=== PATIENT | female | born 2005 | race Caucasian/White ===

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

== ENCOUNTER 2025-03-22 22:26 | Emergency (ER) | payer OTHER, SELFPAY ==
[2025-03-22 22:28] VITALS: BP 151/100; PULSE 78; TEMP 37.4; O2SAT 98; BMI 39.5
[2025-03-22 22:58] LABS: SARS-CoV-2 Ag NEGATIVE (NEGATIVE)
--- NOTE | 2025-03-22 23:02 | XR_ITS ---
[facility] [place] [id number] Patient Name: OLEGARIO COLLINS MRN: [id number] date: 2005 Sex: F Assigned Patient Location: ER Current Patient Location: ED.MAIN Accession/Order Number: [id number] Exam Date: 03/22/2025 23:16 Report Date: 03/22/2025 23:44 At the request of: RACHANA RUIZ MD Procedure: XR chest 2V PA AND LATERAL CHEST: CLINICAL HISTORY: cough COMPARISON: None FINDINGS: Unremarkable cardiomediastinal. Lungs clear. No effusion or pneumothorax. XR/XR chest 2V IMPRESSION: NO ACUTE CARDIOPULMONARY ABNORMALITY. Impression dictated by: Viral Zhang M.D. 03/22/2025 11:44 PM Dictation Location: [place] [address] Electronically authenticated by: [id number] Y Date: 03/22/2025 23:44
--- NOTE | 2025-03-22 23:03 | ED.URI1 ---
HPI - URI/Sore Throat General Chief Complaint: Upper Respiratory Infection Stated Complaint: COUGHING UP BLOOD/ HURTS TO SWALLOW Time Seen by Provider: 03/22/25 22:33 Source: patient Limitations: no limitations History of Present Illness HPI Narrative: ill one week with cough. post tussive emesis . few times coughed up blood tinged phlegm and other times green phlegm. Low grade fever. No chest pain. Hurts to swallow. Not short of breath Related Data Home Medications ?Medication ?Instructions ?Recorded ?Confirmed No Known Home Medications 03/22/25 03/22/25 Allergies Allergy/AdvReac Type Severity Reaction Status Date / Time No Known Drug Allergies Allergy Verified 03/22/25 22:34 Review of Systems ROS Status of ROS 10 or more systems reviewed and unremarkable except as noted in history and below PFSH PFS Social History Little interest or pleasure in doing things: not at all Feeling down, depressed, or hopeless: not at all Exam Constitutional Vital Signs, click to edit/add: Last Vital Signs Temp 99.3 F 03/22/25 22:28 Pulse 78 03/22/25 22:28 Resp 18 03/22/25 22:28 BP 151/100 H 03/22/25 22:28 Pulse Ox 98 03/22/25 22:28 O2 Del Method Room Air 03/22/25 22:28 Common normals: no apparent distress, average body habitus, oriented x3, no limitations, healthy appearing, alert and well nourished [facility] Common normals: normocephalic and head/scalp atraumatic Other: erythema pharynx. no exudate or swelling Eye Common normals: EOMs intact bilaterally and conjunctivae normal Respiratory Common normals: normal respiratory effort, no retractions, no use of accessory muscles and clear to auscultation bilaterally Cardio Common normals: regular rate, regular rhythm, S1 normal heart sound and S2 normal heart sound Extremity Common normals: normal to inspection and full ROM Neuro Common normals: oriented x3, CN's II-XII intact bilaterally, moves all extremities and no focal motor deficits Psych Appearance: grossly normal Course Vital Signs Vital signs: Vital Signs Temperature 99.3 F 03/22/25 22:28 Pulse Rate 78 03/22/25 22:28 Respiratory Rate 18 03/22/25 22:28 Blood Pressure 151/100 H 03/22/25 22:28 Pulse Oximetry 98 03/22/25 22:28 Oxygen Delivery Method Room Air 03/22/25 22:28 Temperature 99.3 F 03/22/25 22:28 Pulse Rate 78 03/22/25 22:28 Respiratory Rate 18 03/22/25 22:28 Blood Pressure 151/100 H 03/22/25 22:28 Pulse Oximetry 98 03/22/25 22:28 Oxygen Delivery Method Room Air 03/22/25 22:28 MDM - URI/Sore Throat MDM Narrative Medical decision making narrative: ill for one week with productive cough, low grade fever. Post tussive emesis and occ blood tingled phlegm. cxray is clear. COVID 19 , influenza and strep neg. CBC, BMP WNL. patient informed of working diagnosis of acute bronchitis and discharged home with [facility] Lab Data Labs: Lab Results 03/22/25 03/22/25 Range/Units 22:36 23:13 WBC 8.8 (4.0-11.0) 10^3/uL RBC 4.49 (4.20-5.40) 10^6/uL Hgb 12.4 (12.0-16.0) g/dL Hct 38.1 (36.0-48.0) % MCV 84.9 (81.0-99.0) fL MCH 27.6 (26.7-34.0) pg MCHC 32.5 (29.9-35.2) g/dL RDW 12.8 (11.0-15.0) % Plt Count 430 (150-450) 10^3/uL MPV 9.0 L (9.5-13.5) fL Neut % (Auto) 61.6 (43.0-75.0) % Lymph % (Auto) 28.7 (20.5-60.0) % [place] % (Auto) 7.2 (1.7-12.0) % Eos % (Auto) 1.8 (0.9-7.0) % Baso % (Auto) 0.5 (0.2-2.0) % Neut # (Auto) 5.4 (1.4-6.5) 10^3/uL Lymph # (Auto) 2.5 (1.2-3.8) 10^3/uL [place] # (Auto) 0.6 (0.3-0.8) 10^3/uL Eos # (Auto) 0.2 (0.0-0.7) 10^3/uL Baso # (Auto) 0.0 (0.0-0.1) 10^3/uL Abs Immat Gran (auto) 0.02 (0.00-0.03) 10^3/uL Imm/Tot Granulo (auto) 0.2 (0.0-0.5) % Sodium 140 (136-145) mmol/L Potassium 3.8 (3.5-5.1) mmol/L Chloride 105 (98-107) mmol/L Carbon Dioxide 28.1 (21.0-32.0) mmol/L Anion Gap 10.7 BUN 10.0 (7.0-18.0) mg/dL Creatinine 0.79 (0.55-1.02) mg/dL Est GFR ( Amer) >60 (>=60 mL/min/1.73m^2) Est GFR (Non-Af Amer) >60 (>=60 mL/min/1.73m^2) BUN/Creatinine Ratio 12.7 Glucose 97 (74-106) mg/dL Calcium 9.4 (8.5-10.1) mg/dL Influenza Type A Ag Negative Influenza Type B Ag Negative SARS-CoV-2 Ag (CV2AG) Negative (NEGATIVE) Streptococcus Screen Negative Discharge Plan Discharge Chief Complaint: Upper Respiratory Infection Clinical Impression: Bronchitis Patient Disposition: Home, Self-Care Prescriptions / Home Meds: No Action No Known Home Medications Print Language: Maltese Instructions: Acute Bronchitis (ED) Additional Instructions: follow up with your doctor later this week for recheck Referrals: Physician,Non-Staff, MD [Primary Care Provider] - 1 week
[2025-03-22 23:20] LABS: Hematocrit 38.1 % (36.0-48.0); Hemoglobin 12.4 g/dL (12.0-16.0); Immature Granulocytes Abs Auto 0.02 10^3/uL (0.00-0.03); Immature Granulocytes Pct Auto 0.2 % (0.0-0.5); Lymphocytes Absolute Auto 2.5 10^3/uL (1.2-3.8); Mean Corpuscular HGB Conc 32.5 g/dL (29.9-35.2); Mean Corpuscular Hemoglobin 27.6 pg (26.7-34.0); Mean Corpuscular Volume 84.9 fL (81.0-99.0); Platelet Count 430 10^3/uL (150-450); Red Blood Count 4.49 10^6/uL (4.20-5.40); White Blood Count 8.8 10^3/uL (4.0-11.0)
--- OUTSIDE RECORDS SUMMARY | 2025-03-22 23:23 | XMS_ITS | CCD ---
Author Organization [facility] Care Team Providers Care Plaster Mixer Name Role Phone Albert Link Unavailable AICHHOLZ, RETAIL SUPPORT SPECIALIST ENA Attending Unavailable AICHHOLZ, RETAIL SUPPORT SPECIALIST ENA Consulting Unavailable AICHHOLZ, RETAIL SUPPORT SPECIALIST ENA Primary Care Unavailable AICHHOLZ, RETAIL SUPPORT SPECIALIST ENA Admitting Unavailable AICHHOLZ, ENA Attending Unavailable AICHHOLZ, ENA Attending Unavailable MAI, ROCIO Attending Unavailable AICHHOLZ, ENA J Primary Care Unavailable NONE, XXXX Primary Care Physician Unavailab kathleen DANIEL, SUSAN EDWARDS Attending Unavaila ble FREDY, SUSAN EDWARDS Admitting Unavaila ble FREDY, SUSAN EDWARDS Attending Unavaila ble FREDY, SUSAN EDWARDS Admitting Unavaila ble NO FAMILY, PHYSICIAN Primary Care Provider Unava ilable [facility] Omar ORO Attending Provider Duarte Palacios Jr Attending Unavailable Duarte Palacios Jr Admitting Unavailable NO FAMILY, PHYSICIAN Primary Care Unavailable NO FAMILY, PHYSICIAN [facility] Attending [facility] Admitting Unavailable NO FAMILY, PHYSICIAN Primary Care Provider Unava dcable [facility] Omar ORO Attending Provider Aylin Silva APRN Attending Provider Medications Current Medications MedicationDrug Class(es)DatesSig (Normalized)Sig (Original)FLUoxetine 20 mg oral capsule (1 source)Serotonin Reuptake InhibitorStart: 72-93-3729kply 1 mg by mouth once dailyFluoxetine 20 mg capsule Active MG PO Daily March 21, 2025 12:00am Complies with drug therapypropranolol hydrochloride 10 mg oral tablet (1 source)beta-Adrenergic BlockerStart: 99-20-4743Zzmbiizelbj 10 mg tablet Active 10 MG PO March 21, 2025 12:00am Complies with drug therapy Completed/Discontinued Medications MedicationDrug Class(es)DatesSig (Normalized)Sig (Original)OLANZapine 2.5 mg oral tablet (1 source)Atypical AntipsychoticStart: 03-21-2025 End: 75-42-9911Gpyajkahsl 2.5 mg tablet Discontinued 2.5 MG PO March 21, 2025 12:00am March 21, 2025 9:50am Problems Active Problems Problem ClassificationProblemDateDocumented DateEpisodic/ChronicCrushing injury or internal injury (1 source)Crushing injury of right wrist, initial encounter; Translations: [Crushing injury of right wrist, initial encounter]Onset: 83-67-3969Gccrwpmw Menstrual disorders (4 sources)Excessive and frequent menstruation with irregular cycle; Translations: [EXCESS AND FREQ MEN W/IRREG CYCLE]Onset: 56-07-7728RlidvdwXomju non-traumatic joint disorders (1 source)Pain in wristOnset: 40-40-0000FtnnijztSjkgh nutritional; endocrine; and metabolic disorders (1 source)Obesity, unspecified; Translations: [OBESITY UNSPECIFIED]Onset: 62-12-4423AgwtgawIpnzrkp and strains (1 source)Unspecified sprain of right wrist, initial encounter; Translations: [Unspecified sprain of right wrist, initial encounter]Onset: 00-63-5398Vjmlppjq Unclassified (1 source)Wrist InjuryOnset: 06-11-2024 Past or Other Problems Problem ClassificationProblemDateDocumented DateEpisodic/ChronicJoint disorders and dislocations; trauma-related (1 source)Unspecified tear of unspecified meniscus, current injury, right knee, initial encounterOnset: 09-13-2021 Resolved: 62-53-2906NidsbzxdZamju injuries and conditions due to external causes (1 source)Unspecified injury of right lower leg, initial encounterOnset: 09-13-2021 Resolved: 73-57-4273TvdivdjkLuksv non-traumatic joint disorders (1 source)Effusion, right kneeOnset: 09-13-2021 Resolved: 21-35-1857XwcgwygkSjveumxljde injury; contusion (1 source)Contusion of right knee, subsequent encounterOnset: 10-02-2021 Resolved: 03-23-3885Zufgjekj Results Test NameValueInterpretationReference RangeFacilityInfluenza virus A and B and SARS-CoV-2 (COVID-19) RNA panel - Respiratory system specOrdered By: Aylin Silva on 14-40-3461Akfgofxiz virus A and B RNA and SARS-CoV-2 (COVID-19) N gene panel WINDY+probe (Resp)NegativeUniversity Hospitals Portage Medical CenterLaboratory - Microbiology and Antimicrobial susceptibilityOrdered By: Aylin Silva on 27-01-5906LDUW-CoV-2 (COVID-19) RNA WINDY+probe Ql (Unsp spec)NegativeUniversity Hospitals Portage Medical CenterNo Panel InformationOrdered By: Aylin Silva on 69-70-4099FCC Influenza B (WINDY)NegativeUniversity Hospitals Portage Medical CenterQuick Strep (POC)[facility] Medical CenterAlanine aminotransferase [Enzymatic activity/volume] in Serum or PlasmaOrdered By: Omar Ellsworth on 19-97-8820FSS [Catalytic activity/Vol]16 U/L7-52University [facility]als Portage Medical CenterComment on above:Performed By: #### PILLAR LIPID, PILLAR CMP, PILLAR CBC #### [facility] [address] [place] [address] USAAlbumin [Mass/volume] in Serum or Plasma by Bromocresol green (BCG) dye binding methoOrdered By: Omar Ellsworth on 78-93-6469Muhaubf BCG dye [Mass/Vol]4.3 g/dL3.5-5.7FRiverview Health InstituteAlkaline phosphatase [Enzymatic activity/volume] in Serum or PlasmaOrdered By: Omar Ellsworth on 45-23-6083DPF [Catalytic activity/Vol]101 U/Y07-219IhtwaaxszUniversity Hospitals Portage Medical CenterComment on above:Performed By: #### PILLAR LIPID, PILLAR CMP, PILLAR CBC #### [facility] [address] [place] [id number] USAAspartate aminotransferase [Enzymatic activity/volume] in Serum or PlasmaOrdered By: Omar Ellsworth on 29-16-2865SOE [Catalytic activity/Vol] 16 U/A22-85CyjtgdavyUniversity Hospitals Portage Medical CenterComment on above:Performed By: #### PILLAR LIPID, PILLAR CMP, PILLAR CBC #### [facility] [address] [place] [address] USABasophils [#/volume] in Blood by Automated countOrdered By: mOar Ellsworth on 61-37-6487Wssbxezoe (Bld) [#/Vol]0.0 10*3/uL0.0-0.2FRiverview Health InstituteComment on above:Result Comment: PERFORMED BY: [place] [address] PATHOLOGIST JEWELRY SALES COORDINATOR WILFREDO OG M.D.Performed By: #### PILLAR LIPID, PILLAR CMP, PILLAR CBC #### [place] [address] USABasophils/100 leukocytes in Blood by Automated count Ordered By: Omar Ellsworth on 72-04-9125Enaoxhmke/100 WBC (Bld)0.5 %.University Hospitals Portage Medical CenterComment on above:Performed By: #### PILLAR LIPID, PILLAR CMP, PILLAR CBC #### [place] [address] USABilirubin.total [Mass/volume] in Serum or PlasmaOrdered By: Omar Ellsworth on 92-28-7988Ndecquslo [Mass/Vol]0.5 mg/dL0.3-1.0[facility] Portage Medical CenterComment on above:Performed By: #### PILLAR LIPID, PILLAR CMP, PILLAR CBC #### [facility] [address] [place] [address] USACalcium [Mass/volume] in Serum or PlasmaOrdered By: Omar Ellsworth on 49-86-8749Wwzrilm [Mass/Vol]9.4 mg/dL8.6-10.3FRiverview Health InstituteComment on above:Performed By: #### PILLAR LIPID, PILLAR CMP, PILLAR CBC #### [place] [id number] USACarbon dioxide, total [Moles/volume] in Serum or Plasma Ordered By: Omar Ellsworth on 06-57-7370OO9 [Moles/Vol]27.9 mmol/L21.0-31.0[facility] Port[facility] Medical CenterComment on above:Performed By: #### PILLAR LIPID, PILLAR CMP, PILLAR CBC #### [facility] [address] [place] [address] USAChloride [Moles/volume] in Serum or PlasmaOrdered By: Omar Ellsworth on 43-62-2419Iqmofmbp [Moles/Vol]102 mmol/L37-185VxrcckzubUniversity Hospitals Portage Medical CenterComment on above:Performed By: #### PILLAR LIPID, PILLAR CMP, PILLAR CBC #### [facility] [address] [place] [id number] USACholesterol [Mass/volume] in Serum or PlasmaOrdered By: Omar Ellsworth on 54-93-2767Lrkeydcecut [Mass/Vol]191 mg/dV887-622QkcfzbsgcUniversity Hospitals Portage Medical CenterComment on above:Chol less than 200 mg/dl low riskChol 201-239 mg/dl borderline riskChol 240 mg/dl and greater high riskResult Comment: Chol less than 200 mg/dl low risk Chol 201-239 mg/dl borderline risk Chol 240 mg/dl and greater high riskPerformed By: #### PILLAR LIPID, PILLAR CMP, PILLAR CBC #### [facility] [address] [place] [address] USACholesterol in HDL [Mass/volume] in Serum or PlasmaOrdered By: Omar Ellsworth on 93-14-3688Zyvxjmpmwee in HDL [Mass/Vol]33 mg/aL09-28NrjrsqdslUniversity Hospitals Portage Medical CenterComment on above:HDL CHOL ATP-III CLASSIFICATION Cardiovascular RiskHDL > or equal to 60 mg/dL LOWHDL < 40 mg/dL HIGHResult Comment: HDL CHOL ATP-III CLASSIFICATION Cardiovascular Risk HDL > or equal to 60 mg/dL LOW HDL < 40 mg/dL HIGHPerformed By: #### PILLAR LIPID, PILLAR CMP, PILLAR CBC #### [facility] [address] [place] [address] USACholesterol in LDL Calc [Mass/Vol]Ordered By: Omar Ellsworth on 30-75-0298Hxsyxeyhcov in LDL [Mass/Vol]117 mg/dLHigh0-100[facility] Portage Medical CenterComment on above:LDL ATP III CLASSIFICATIONLDL less than 100 mg/dL OptimalLDL 100-129 mg/dL Near or above kzpufxuEYR144-657 mg/dL Borderline highLDL 160-189 mg/dL HighLDL greater than 189 mg/dL Very highCholesterol in VLDL Calc [Mass/Vol]Ordered By: Omar Ellsworth on 72-78-8639Ydzruteasun in VLDL [Mass/Vol]41 mg/dLUniversity Hospitals Portage Medical CenterCreatinine [Mass/volume] in Serum or PlasmaOrdered By: Omar Ellsworth on 98-37-2603Agzyiongxg [Mass/Vol]0.54 mg/dLLow0.60-1.20[facility] Port[facility] Medical CenterComment on above:Performed By: #### PILLAR LIPID, PILLAR CMP, PILLAR CBC #### [place] [address] USAEmployee Comp Metabolic Panelon 06-27-6900Ihrpuba [Mass/Vol]4.3 g/dLNormal3.5-5.7The [facility] Physician GroupComment on above: Performed By: #### PILLAR LIPID, PILLAR CMP, PILLAR CBC #### [place] [address] USAGFR/1.73 sq M.predicted MDRD (S/P/Bld) [Vol rate/Area] mL/min/{1.73_m2}NormalThe [facility] Physician GroupComment on above:Performed By: #### PILLAR LIPID, PILLAR CMP, PILLAR CBC #### [place] [address] USAEmployee Complete Blood Counton 93-86-8411Rxes Corpuscular HGB Conc33.9 g/vGIiafom00.0-35.0The [facility] Physician GroupComment on above: Performed By: #### PILLAR LIPID, PILLAR CMP, PILLAR CBC #### [place] [address] USANRBC%0.1 /100{WBC}Normal0-0.5The [facility] Comment on above:Performed By: #### PILLAR LIPID, PILLAR CMP, PILLAR CBC #### [facility] [address] [place] [address] USAWhite Blood Count9.5 [CFU]/mLNormal3.8-11.6The [facility] Physician [facility] BiloxiComment on above:Performed By: #### PILLAR LIPID, PILLAR CMP, PILLAR CBC #### [facility] [address] [place] [address] USAEmployee Lipid Profileon 80-20-2428ZQW Cholesterol,Lzgryfymgj344 mg/dLHigh0-100The [facility] Physician [facility] Health BiloxiComment on above:Result Comment: LDL ATP III CLASSIFICATION LDL less than 100 mg/dL Optimal LDL 100-129 mg/dL Near or above optimal LDL 130-159 mg/dL Borderline high LDL 160-189 mg/dL High LDL greater than 189 mg/dL Very highPerformed By: #### PILLAR LIPID, PILLAR CMP, PILLAR CBC #### [place] [address] USATriglyceride w/Kiniru932 mg/dLHigh0-149The [facility] Physician [facility] Health BiloxiComment on above:Result Comment: TRIG ATP III CLASSIFICATION TRIG less than 150 mg/dL Normal TRIG 150-199 mg/dL Borderline high TRIG 200-500 mg/dL High TRIG greater than 500 mg/dL Very high Standard traceable to the Center for Disease Conrtrol and Prevention (CDC) test method.Performed By: #### PILLAR LIPID, PILLAR CMP, PILLAR CBC #### [facility] [address] [place] [address] USAVLDL FKINDDILOSW95 mg/dLNormalThe [facility] Physician [facility] BiloxiComment on above:Performed By: #### PILLAR LIPID, PILLAR CMP, PILLAR CBC #### [place] [address] USAEosinophils [#/volume] in Blood by Automated countOrdered By: Omar Ellsworth on 00-11-6946Uuntupzsnxs (Bld) [#/Vol]0.1 10*3/uL0.0-0.45 [facility] CenterComment on above:Performed By: #### PILLAR LIPID, PILLAR CMP, PILLAR CBC #### [facility] [address] [place] [address] USAEosinophils/100 leukocytes in Blood by Automated count Ordered By: Omar Ellsworth on 94-04-8971Jtiqprpxbgy/100 WBC (Bld)1.1 %.[facility] Medical CenterComment on above:Performed By: #### PILLAR LIPID, PILLAR CMP, PILLAR CBC #### [facility] [address] [place] [address] USAErythrocyte distribution width [Ratio] by Automated count Ordered By: Omar Ellsworth on 86-17-1161Afmyfonaxaj distribution width (RBC) [Ratio] 13.8 %11.9-15.3FRiverview Health InstituteComment on above:Performed By: #### PILLAR LIPID, PILLAR CMP, PILLAR CBC #### [place] [address] USAErythrocytes [#/volume] in Blood by Automated countOrdered By: Omar Ellsworth on 57-12-3350VVD (Bld) [#/Vol]4.46 10*6/uL3.60-5.00[facility] Medical CenterComment on above:Performed By: #### PILLAR LIPID, PILLAR CMP, PILLAR CBC #### [place] [address] USAGlomerular filtration rate [Volume Rate/Area] in Serum, Plasma or Blood by CreatinineOrdered By: Omar Ellsworth on 38-74-9613Fidfkojkse filtration rate [Volume Rate/Area] in Serum, Plasma or Blood by Creatinine> 60.0 mL/MinUniversity Hospitals Portage Medical CenterGlucose [Mass/volume] in Serum or Plasma Ordered By: Omar Ellsworth on 40-90-3519Yqcvgfw [Mass/Vol]83 mg/kK36-820YqusupxuyUniversity Hospitals Portage Medical CenterComment on above:Performed By: #### PILLAR LIPID, PILLAR CMP, PILLAR CBC #### [place] [address] USAHematocrit [Volume Fraction] of Blood by Automated count Ordered By: Omar Ellsworth on 11-78-3442Ruscxkjgwq (Bld) [Volume fraction]36.7 % 34.0-46.4FRiverview Health InstituteComment on above:Performed By: #### PILLAR LIPID, PILLAR CMP, PILLAR CBC #### [facility] [address] [place] [address] USAHemoglobin [Mass/volume] in BloodOrdered By: Omar Ellsworth on 72-22-4122Uhwwnakfcd (Bld) [Mass/Vol]12.4 g/dL11.8-15.4FRiverview Health InstituteComment on above:Performed By: #### PILLAR LIPID, PILLAR CMP, PILLAR CBC #### [facility] [address] [place] [id number] USALeukocytes [#/volume] corrected for nucleated erythrocytes in Blood by Automated counOrdered By: Omar Ellsworth on 41-42-0293IPD corrected for nucl RBC Auto (Bld) [#/Vol]9.5 10*3/uL3.8-11.6FRiverview Health Institute Leukocytes [#/volume] in Blood by Automated countOrdered By: Omar Ellsworth on 17-98-5311KXP (Bld) [#/Vol]9.5 10*3/uL3.8-11.6FRiverview Health Institute Comment on above:Performed By: #### PILLAR LIPID, PILLAR CMP, PILLAR CBC #### [facility] [address] [place], [place] [id number] USALymphocytes [#/volume] in Blood by Automated countOrdered By: Omar Ellsworth on 89-30-4409Dbcvuwaqhqt (Bld) [#/Vol]2.9 10*3/uL1.00-4.8 [facility] CenterComment on above:Performed By: #### PILLAR LIPID, PILLAR CMP, PILLAR CBC #### [facility] [address] [place] [id number] USALymphocytes/100 leukocytes in Blood by Automated count Ordered By: Omar Ellsworth on 55-84-9265Ooiixmupllf/100 WBC (Bld)30.6 %.[facility] Medical CenterComment on above:Performed By: #### PILLAR LIPID, PILLAR CMP, PILLAR CBC #### [facility] [address] [Entitic mass] by Automated countOrdered By: Omar Ellsworth on 16-45-9200MYV (RBC) [Entitic mass]27.9 pg24.7-34.3FRiverview Health InstituteComment on above:Performed By: #### PILLAR LIPID, PILLAR CMP, PILLAR CBC #### [facility] [address] Auto (RBC) [Mass/Vol]Ordered By: Omar Ellsworth on 88-00-2667DTRK (RBC) [Mass/Vol]33.9 g/dL32.0-35.0[facility] Portage Medical CenterMCV [Entitic volume] by Automated countOrdered By: Omar Ellsworth on 22-77-2935DOP (RBC) [Entitic vol]82.3 nR01-646ZullgzghoUniversity Hospitals Portage Medical Center Comment on above:Performed By: #### PILLAR LIPID, PILLAR CMP, PILLAR CBC #### [facility] [address] [place] [address] USAMonocytes [#/volume] in Blood by Automated countOrdered By: Omar Ellsworth on 68-70-6161Kvbgvkiut (Bld) [#/Vol]0.4 10*3/uL0.0-0.8[facility] Medical CenterComment on above:Performed By: #### PILLAR LIPID, PILLAR CMP, PILLAR CBC #### [facility] [address] [place] [address] USAMonocytes/100 leukocytes in Blood by Automated count Ordered By: Omar Ellsworth on 24-53-9554Rqtiojiln/100 WBC (Bld)4.1 %.[facility] Medical CenterComment on above:Performed By: #### PILLAR LIPID, PILLAR CMP, PILLAR CBC #### [facility] [address] [place] [address] USANeutrophils [#/volume] in Blood by Automated countOrdered By: Omar Ellsworth on 39-18-7955Rkqkqynytka (Bld) [#/Vol]6.0 10*3/uL1.8-7.7FRiverview Health InstituteComment on above:Performed By: #### PILLAR LIPID, PILLAR CMP, PILLAR CBC #### [facility] [address] [place] [id number] USANeutrophils/100 leukocytes in Blood by Automated count Ordered By: Omar Ellsworth on 16-26-6951Zgkiwaltqtz/100 WBC (Bld)63.7 %.[facility] Medical CenterComment on above:Performed By: #### PILLAR LIPID, PILLAR CMP, PILLAR CBC #### [facility] [address] [place] [address] USANo Panel InformationOrdered By: Omar Ellsworth on 02-04-2025 Pharmacy Creatinine Clearance (ChemN/[facility] CenterNucleated erythrocytes [Presence] in Blood by Automated countOrdered By: Omar Ellsworth on 02-27-8224Wkvunpaet RBC Auto Ql (Bld)0.1 /100{WBC}0-0.5FRiverview Health InstitutePlatelet mean volume [Entitic volume] in Blood by Automated count Ordered By: Omar Ellsworth on 87-95-2133Wiwjyaet mean volume (Bld) [Entitic vol]7.7 fL6.3-10.7FRiverview Health InstituteComment on above:Performed By: #### PILLAR LIPID, PILLAR CMP, PILLAR CBC #### [facility] [address] [place] [address] USAPlatelets [#/volume] in Blood by Automated countOrdered By: Omar Ellsworth on 41-60-5314Yshqbetif (Bld) [#/Vol]432 10*3/eI411-451WdarvlvjhUniversity Hospitals Portage Medical CenterComment on above:Performed By: #### PILLAR LIPID, PILLAR CMP, PILLAR CBC #### [facility] [address] [place] [id number] USAPotassium [Moles/volume] in Serum or PlasmaOrdered By: Omar Ellsworth on 04-47-5430Ecveqnmiy [Moles/Vol]4.4 mmol/L3.5-5.1FRiverview Health InstituteComment on above:Performed By: #### PILLAR LIPID, PILLAR CMP, PILLAR CBC #### [facility] [address] [place] [address] USAProtein [Mass/volume] in Serum or PlasmaOrdered By: Omar Ellsworth on 98-07-5284Ldxrwhq [Mass/Vol]7.1 g/dL6.4-8.9[facility] Medical CenterComment on above:Performed By: #### PILLAR LIPID, PILLAR CMP, PILLAR CBC #### [place] [address] USASerum globulin measurement by calculation (mass/volume) Ordered By: Omar Ellsworth on 67-58-6639Gqnqjfte (S) [Mass/Vol]2.8 g/dLUniversity Hospitals Portage Medical CenterComment on above:Performed By: #### PILLAR LIPID, PILLAR CMP, PILLAR CBC #### [facility] [address] [place] [address] USASerum or plasma albumin/globulin mass ratioOrdered By: Omar Ellsworth on 51-18-3578Lzrkhjc/Globulin [Mass ratio]1.5 {ratio}[facility] CenterComment on above:Performed By: #### PILLAR LIPID, PILLAR CMP, PILLAR CBC #### [place] [address] USASerum or plasma anion gap determinationOrdered By: Omar Ellsworth on 50-84-5292Bbrmv gap [Moles/Vol]10.5 mmol/L6.0-15.0[facility] Medical CenterComment on above:Performed By: #### PILLAR LIPID, PILLAR CMP, PILLAR CBC #### [facility] [address] [place] [address] USASerum or plasma total cholesterol/high density lipoprotein (HDL) cholesterol mass ratOrdered By: Omar Ellsworth on 02-04-2025 Cholesterol.total/Cholesterol in HDL [Mass ratio]5.8 {ratio}<5.0[facility] Medical CenterComment on above:Result Comment: PERFORMED BY: [place] [address] PATHOLOGIST JEWELRY SALES COORDINATOR WILFREDO OG M.D.Performed By: #### PILLAR LIPID, PILLAR CMP, PILLAR CBC #### [facility] [address] [place] [address] USASodium [Moles/volume] in Serum or PlasmaOrdered By: Omar Ellsworth on 80-31-5385Rjmyqq [Moles/Vol]136 mmol/S803-908TlgmobymeUniversity Hospitals Portage Medical CenterComment on above:Performed By: #### PILLAR LIPID, PILLAR CMP, PILLAR CBC #### [facility] [address] [place] [address] USATriglyceride [Mass/volume] in Serum or PlasmaOrdered By: Omar Ellsworth on 92-41-8132Wzoztokhkefl [Mass/Vol]205 mg/dLHigh0-149[facility] CenterComment on above:TRIG ATP III CLASSIFICATIONTRIG less than 150 mg/dL NormalTRIG 150-199 mg/dL Borderline highTRIG 200-500 mg/dL High TRIG greater than 500 mg/dL Very highStandard traceable to the Center for Disease Conrtrol and Prevention (CDC) test method.Urea nitrogen [Mass/volume] in Serum or PlasmaOrdered By: Omar Ellsworth on 37-99-1444Ebto nitrogen [Mass/Vol]10 mg/dL7-25[facility] CenterComment on above:Performed By: #### PILLAR LIPID, PILLAR CMP, PILLAR CBC #### [facility] [address] [place] [address] USABasic Metabolic Wang w/Rfx A1Con 24-88-1018Uudgr gap [Moles/Vol]11.9 mmol/LNormal6.0-15.0The [facility] Physician GroupComment on above:Performed By: #### EMP BMP, EBS LIPID #### [facility] [address] [place] [address] USACalcium [Mass/Vol]9.3 mg/dLNormal8.6-10.3The [facility] Physician GroupComment on above:Performed By: #### EMP BMP, EBS LIPID #### [facility] [address] [place] [address] USAChloride [Moles/Vol]105 mmol/ELyetpm55-473Piw [facility] Physician GroupComment on above:Performed By: #### EMP BMP, EBS LIPID #### [facility] [address] [place] [address] USACO2 [Moles/Vol]24.5 mmol/UEyvyfy86.0-31.0The [facility] Physician GroupComment on above:Performed By: #### EMP BMP, EBS LIPID #### [facility] [address] [place] [address] USACreatinine [Mass/Vol]0.57 mg/dLLow0.60-1.20The [facility] Physician GroupComment on above:Performed By: #### EMP BMP, EBS LIPID #### [place] [address] USAGFR/1.73 sq M.predicted MDRD (S/P/Bld) [Vol rate/Area] mL/min/{1.73_m2}NormalThe [facility] Physician GroupComment on above:Performed By: #### EMP BMP, EBS LIPID #### [facility] [address] [place] [address] USAGlucose [Mass/Vol]84 mg/xSMybdke96-026Rqi [facility] Physician GroupComment on above:Performed By: #### EMP BMP, EBS LIPID #### [facility] [address] [place] [address] USAPotassium [Moles/Vol]4.4 mmol/LNormal3.5-5.1The [facility] Physician GroupComment on above:Performed By: #### EMP BMP, EBS LIPID #### [facility] [address] [place] [address] USASodium [Moles/Vol]137 mmol/PFyxqtg942-956Oke [facility] Physician GroupComment on above:Performed By: #### EMP BMP, EBS LIPID #### [facility] [address] [place] [address] USAUrea nitrogen [Mass/Vol]13 mg/dLNormal7-25The [facility] Physician GroupComment on above:Performed By: #### EMP BMP, EBS LIPID #### [facility] [address] [place] [address] USALipid Profileon 39-14-5942Ywslpcuzawl [Mass/Vol]194 mg/dL Gawnbf039-773Jim [facility] Physician GroupComment on above:Result Comment: Chol less than 200 mg/dl low risk Chol 201-239 mg/dl borderline risk Chol 240 mg/dl and greater high riskPerformed By: #### EMP BMP, EBS LIPID #### [facility] [address] [place] [address] USACholesterol in HDL [Mass/Vol]38 mg/cLHkujnb37-54Xtd [facility] Physician GroupComment on above:Result Comment: HDL CHOL ATP-III CLASSIFICATION Cardiovascular Risk HDL > or equal to 60 mg/dL LOW HDL < 40 mg/dL HIGHPerformed By: #### EMP BMP, EBS LIPID #### [facility] [address] [place] [address] USACholesterol.total/Cholesterol in HDL [Mass ratio]5.1 {ratio}Normal<5.0The [facility] Physician GroupComment on above:Result Comment: PERFORMED BY: [place] [address] PATHOLOGIST JEWELRY SALES COORDINATOR SARWAT GAFFNEY M.D.Performed By: #### MARY JO BMP, EBS LIPID #### [facility] [address] [place] [address] USALDL Cholesterol,Fwsdsadwhe320 mg/dLHigh0-100The [facility] Physician GroupComment on above:Result Comment: LDL ATP III CLASSIFICATION LDL less than 100 mg/dL Optimal LDL 100-129 mg/dL Near or above optimal LDL 130-159 mg/dL Borderline high LDL 160-189 mg/dL High LDL greater than 189 mg/dL Very highPerformed By: #### EMP BMP, EBS LIPID #### [facility] [address] [place] [address] USATriglyceride w/Xrojbs993 mg/dLNormal0-149The [facility] Physician GroupComment on above:Result Comment: TRIG ATP III CLASSIFICATION TRIG less than 150 mg/dL Normal TRIG 150-199 mg/dL Borderline high TRIG 200-500 mg/dL High TRIG greater than 500 mg/dL Very high Standard traceable to the Center for Disease Conrtrol and Prevention (CDC) test method.Performed By: #### EMP BMP, EBS LIPID #### [facility] [address] [place] [address] USAVLDL JVCTTDIXOYS02 mg/dLNoUNC Health Johnston Physician GroupComment on above:Performed By: #### EMP BMP, EBS LIPID #### [facility] [address] [place] [address] USAB hCG Qualon 19-95-7840Zeau HCG ( test) Ql NegativeNormalAdena Fayette Medical CenterComment on above:Performed By: #### [id number] #### [facility] [address] [place], [place] [address]ElNS Quanton 90-48-5856ICR.beta subunit Qnm[IU]/mLNormal1-3 [facility]ayette Medical CenterComment on above:Result Comment: 'F NON < 1 - 3' ' 0.2 - 1 WEEK = 5 TO 50' ' 1 - 2 WEEKS = 50 - 500' ' 2 - 3 WEEKS = 100 - 5000' ' 3 - 4 WEEKS = 500 - 40723' ' 4 - 5 WEEKS = 1000 - 03298' ' 5 - 6 WEEKS = 62897 - 083362' ' 6 - 8 WEEKS = 18703 - 795432' ' 8 - 12 WEEKS = 34078 - 634966'Performed By: #### [id number] #### [facility] [address], [place] [address]UJVZGLGGTInnijks By: SYSTEM SYSTEM on 85-27-5977ACN.beta subunit QnmIU/mLNormal1 - 3 mIU/mLRemisol ChemComment on above:Result Comment: 'F NON < 1 - 3' ' 0.2 - 1 WEEK = 5 TO 50' ' 1 - 2 WEEKS = 50 - 500' ' 2 - 3 WEEKS = 100 - 5000' ' 3 - 4 WEEKS = 500 - 98755' ' 4 - 5 WEEKS = 1000 - 75673' ' 5 - 6 WEEKS = 50592 - 263088' ' 6 - 8 WEEKS = 52160 - 058150' ' 8 - 12 WEEKS = 53477 - 692987'SEROLOGYOrdered By: Nkechi Jernigan on 86-53-7173Fgkw HCG ( test) QlNegative (09/15/24 8:39 AM)NormalSAINT [facility]ANC[facility] Man SeroInsurachel Lvlon 13-82-3832Ideybvs Qn23.7 u[IU]/mLInvalid Interpretation Code2.6-24.9A[facility] Fayette Medical CenterComment on above:Result Comment: Performed at: [facility] [address] [id number] PhD Vick Montanaformed By: #### [id number] #### [facility] [address], [place] [address]NQ WRIST RT MIN 3 VWSon 89-69-5325HV WRIST RT MIN 3 VWSXR WRIST RT MIN 3 VWS History: Trauma. Exam/Technique: AP lateral oblique and scaphoid view. Comparison: None. Findings: No acute fracture-dislocation. No soft tissue swelling. Osseous density is normal. No erosive disease. Joint spaces are maintained. IMPRESSION: No acute abnormality. No soft tissue abnormality. Finalized by Dimitri Castelan MD on 06/11/2024 5:53 PMNormalProMedica Los Angeles General Medical CenterINSULINon 38-24-0158Sscmsjm39.8 uIU/mLNormal2.6-24.9[facility] Shelby HospitalComment on above:Performed By: #### INSULIN #### [facility] [address] [place] [address] Dr. Hugo Gómez AUTO DIFFon 76-83-0214WPET #0.0 103/ulNormal0.0-0.1Ohiohealth Shelby HospitalComment on above:Performed By: #### CBC #### [facility] [address] [address] [address] Hugo Whitephils/100 WBC (Bld)0.2 %Normal0.2-2.0[facility] Comment on above:Performed By: #### CBC #### [facility] [address] [address] [address] Hugo Carrera #0.1 103/ulNormal0.0-0.7The [facility] SystemComment on above: Performed By: #### CBC #### [facility] [address] [place] [address] Dr. Hugo Trevinoosinophils/100 WBC (Bld)1.7 %Normal0.9-7.0The [facility] Comment on above:Performed By: #### CBC #### [facility] [address] [place] [address] Dr. Hugo Trevinorythrocyte distribution width (RBC) [Ratio]12.9 %Pnwwex03.0-15.0 The [facility] SystemComment on above:Performed By: #### CBC #### [facility] [address] [place] [address] Dr. Hugo BarenttHematocrit (Bld) [Volume fraction]39.5 %Bjkhdf24.0-48.0The [facility] SystemComment on above:Performed By: #### CBC #### [facility] [address] [place] [address] Dr. Hugo BarnettHemoglobin (Bld) [Mass/Vol]13.0 g/iDDrjeew77.0-16.0The [facility] SystemComment on above:Performed By: #### CBC #### [facility] [address] [place] [address] Dr. Hugo Victor #0.01 10e3/ulNormal0.00-0.03The [facility] SystemComment on above:Performed By: #### CBC #### [facility] [address] [place] [address] Dr. Hugo Victor %0.2 %Normal0.0-0.5The Miami HospitalComment on above: Performed By: #### CBC #### [facility] [address] [place] [address] Dr. Hugo Ham #2.3 103/ulNormal1.2-3.8The [facility] SystemComment on above:Performed By: #### CBC #### [facility] [address] [place] [address] Dr. Yilan ChangLymphocytes/100 WBC (Bld)34.9 %Dsmkas85.5-60.0The [facility] SystemComment on above:Performed By: #### CBC #### [facility] [address] [place] [address] Dr. Hugo Peterson DIFF REQNONormalThe [facility] SystemComment on above: Performed By: #### CBC #### [facility] [address] [place] [address] Dr. Hugo Sterling (RBC) [Entitic mass]27.3 htKuszca24.7-34.0The Miami HospitalComment on above:Performed By: #### CBC #### [facility] [address] [place] [address] Dr. Hugo Sterling (RBC) [Mass/Vol]32.9 g/vMYjqryo49.9-35.2The [facility] SystemComment on above:Performed By: #### CBC #### [facility] [address] [place] [address] Dr. Hugo Roth (RBC) [Entitic vol]83.0 uVFbrwgl03.1-95.6The [facility] SystemComment on above:Performed By: #### CBC #### [facility] [address] [place] [address] Dr. Hugo Flower #0.4 103/ulNormal0.3-0.8The [facility] SystemComment on above:Performed By: #### CBC #### [facility] [address] [place] [address] Dr. Hugo Gouldocytes/100 WBC (Bld)6.3 %Normal1.7-12.0The [facility] Comment on above:Performed By: #### CBC #### [facility] [address] [place] [address] Dr. Hugo Gold #3.7 103/ulNormal1.4-6.5The [facility] SystemComment on above:Performed By: #### CBC #### [facility] [address] [place] [address] Dr. Yilan ChangNeutrophils/100 WBC (Bld)56.7 %Gqgpgi40.0-75.0The [facility] Ohio[facility] Rehabilitation Hospitalment on above:Performed By: #### CBC #### [facility] [address] [address] [address] Hugo BarnettPlatelet mean volume (Bld) [Entitic vol]8.9 fLCritically low 9.5-13.5The [facility] SystemComment on above:Performed By: #### CBC #### [facility] [address] [place] [address] Dr. Hugo BarnettPLT414 103/rnOgqjia871-757Ejo [facility] SystemComun[facility] on above: Performed By: #### CBC #### [facility] [address] [place] [address] Dr. Hugo BarnettRBC4.76 106/ulNormal3.40-5.30The [facility] SystemComun[facility] of [facility] on above:Performed By: #### CBC #### [facility] [address] [place] [address] Dr. Hugo BarnettWBC6.5 103/ulNormal4.0-11.0The [facility] SystemComun[facility] on above: Performed By: #### CBC #### [facility] [address] [place] [address] Dr. Hugo BarnettFREE T4on 16-32-7310Lqay T4 [Mass/Vol]0.84 ng/dLNormal0.78-1.34 The [facility] SystemComun[facility] on above:Performed By: #### FT4 #### [facility] [address] [place] [address] Dr. Hugo BarnettGLYCOHEMOGLOBIN A1Con 59-52-1603POO RECOMMENDATIONSEE BELOWNormal [facility] HospitalComun[facility] of [facility] on above:Result Comment: ADA RECOMMENDED LIMIT 4.0 - 6.0 ADA THERAPEUTIC TARGET < 7.0 ACTION SUGGESTED > 7.0Performed By: #### A1C #### [facility] [address] [place] [address] Dr. Hugo BarnettGlucose [Mass/Vol]114 mg/dLNormalThe Miami HospitalComment on above:Performed By: #### A1C #### [facility] [address] [address] [address] Hugo BarnettHbA1c (Bld) [Mass fraction]5.6 %Normal4.5-6.2The [facility] Ohio[facility] Rehabilitation Hospitalment on above:Performed By: #### A1C #### [facility] [address] [address] [address] Hugo HansenID PROFILEon 13-76-2110WKFT-HDL RATIO NORMSEE [facility] on above:Result Comment: 3.3 - 4.4 LOW RISK 4.4 - 7.1 AVERAGE RISK 7.1 - 11.0 MODERATE RISK >11.0 HIGH RISKPerformed By: #### CMP, TSH, LIPID #### [facility] [address] [address] [address] Hugo BarnettCholesterol [Mass/Vol]206 mg/dPVbwjal655-196Khn [facility] Comment on above:Performed By: #### CMP, TSH, LIPID #### [facility] [address] [address] [address] Hugo Mcdanielesterol in HDL [Mass/Vol]35 mg/xWDoawkx04-36Puo [facility] on above:Performed By: #### CMP, TSH, LIPID #### [facility] [address] [address] [address] Hugo Mcdanielesterol in LDL [Mass/Vol]147.8 mg/dLCritically high46.0-140.0 The [facility] SystemCom[facility] on above:Performed By: #### CMP, TSH, LIPID #### [facility] [address] [address] [address] Hugo Mcdanielesterangélica.total/Cholesterol in HDL [Mass ratio]5.9 {ratio} NormalThe [facility] on above:Performed By: #### CMP, TSH, LIPID #### [facility] [address] [address] [address] Hugo WilhelmL NORMAL> or = 60 mg/dl - LOW CARDIOVASCULAR RISK <40 mg/dl - HIGH CARDIOVASCULAR RISKNoOhioHealth Shelby HospitalComment on above:Performed By: #### CMP, TSH, LIPID #### [facility] [address] [address] [address] Hugo BarnettLDL CALC NORMALSEE BELOWNationwide Children's HospitalComment on above:Result Comment: <100 mg/dl OPTIMAL 100 - 129 mg/dl NEAR OR ABOVE OPTIMAL 130 - 159 mg/dl BORDERLINE HIGH 160 - 189 mg/dl HIGH >190 mg/dl VERY HIGH Performed By: #### CMP, TSH, LIPID #### [facility] [address] [address] [address] Hugo BarnettTriglyceride [Mass/Vol]116 mg/sGFakhqi14-261Iwd [facility] Comment on above:Performed By: #### CMP, TSH, LIPID #### [facility] [address] [place] [address] Dr. Hugo BarnettVLDL CALC23.2 mg/dLNoOhioHealth Shelby HospitalComment on above: Performed By: #### CMP, TSH, LIPID #### [facility] [address] [address] [address] Hugo BarnettPRELolly HCG QUALon 33-89-3392CHKSFFGWY, QUALNegativeNormalNEGATIVE The [facility] SystemComment on above:Performed By: #### PREG #### [facility] [address] [place] [address] Dr. Hugo BarnettPROF 14(COMP METB)on 52-16-0198Kpaaqud [Mass/Vol]3.6 g/dLNormal 3.4-5.0The [facility] SystemComment on above:Performed By: #### CMP, TSH, LIPID #### [facility] [address] [address] [address] Hugo BarnettAlbumin/Globulin [Mass ratio]0.9 {ratio}NormalThe [facility] SystemComuniversity of [facility] health on above:Performed By: #### CMP, TSH, LIPID #### [facility] [address] [address] [address] Hugo BarnettALP [Catalytic activity/Vol]128 U/DUxoblf30-533Zzu [facility] SystemComment on above:Performed By: #### CMP, TSH, LIPID #### [facility] [address] [address] [address] Hugo De León [Catalytic activity/Vol]20 U/UZadopl52-73Yra [facility] SystemComment on above:Performed By: #### CMP, TSH, LIPID #### [facility] [address] [address] [address] Hugo Loweon gap [Moles/Vol]14.7 mmol/LNormalOhiohealth Shelby Hospital Comment on above:Performed By: #### CMP, TSH, LIPID #### [facility] [address] [place] [address] Dr. Hugo Clifton [Catalytic activity/Vol]15 U/PSvjtaq37-87RsxOhiohealth Shelby HospitalComment on above:Performed By: #### CMP, TSH, LIPID #### [facility] [address] [place] [address] Dr. Hugo BarnettBilirubin [Mass/Vol]0.4 mg/dLNormal0.2-1.0[facility] Comment on above:Performed By: #### CMP, TSH, LIPID #### [facility] [address] [place] [address] Dr. Hugo BarnettCalcium [Mass/Vol]9.0 mg/dLNormal8.5-10.1[facility] Comment on above:Performed By: #### CMP, TSH, LIPID #### [facility] [address] [place] [address] Dr. Hugo BarnettChloride [Moles/Vol]104 mmol/GTvruzr95-112FpcOhiohealth Shelby Hospital Comment on above:Performed By: #### CMP, TSH, LIPID #### [facility] [address] [place] [address] Dr. Hugo BarnettCO2 [Moles/Vol]24.2 mmol/UZzltlq81.0-32.0The [facility] Comment on above:Performed By: #### CMP, TSH, LIPID #### [facility] [address] [place] [address] Dr. Yilan ChangCreatinine [Mass/Vol]0.68 mg/dLNormal0.55-1.02The [facility] SystemComment on above:Performed By: #### CMP, TSH, LIPID #### [facility] [address] [address] [address] Hugo BarnettGlobulin (S) [Mass/Vol]4.1 g/dLNormChildren's Hospital for RehabilitationComment on above:Performed By: #### CMP, TSH, LIPID #### [facility] [address] [place] [address] Dr. Hugo BarnettGlucose [Mass/Vol]91 mg/jJXktrno12-636BhdOhiohealth Shelby Hospital Comment on above:Performed By: #### CMP, TSH, LIPID #### [facility] [address] [place] [address] Dr. Hugo BarnettPotassium [Moles/Vol]3.9 mmol/LNormal3.5-5.1The [facility] Comment on above:Performed By: #### CMP, TSH, LIPID #### [facility] [address] [place] [address] Dr. Hugo BarnettProtein [Mass/Vol]7.7 g/dLNormal6.4-8.2[facility] Comment on above:Performed By: #### CMP, TSH, LIPID #### [facility] [address] [place] [address] Dr. Hugo BarnettSodium [Moles/Vol]139 mmol/CRqjtns407-677Jyt [facility] Comment on above:Performed By: #### CMP, TSH, LIPID #### [facility] [address] [place] [address] Dr. Hugo BarnettUrea nitrogen [Mass/Vol]14.0 mg/dLNormal6.4-19.3The [facility] SystemComment on above:Performed By: #### CMP, TSH, LIPID #### [facility] [address] [place] [address] Dr. Hugo BarnettUrea nitrogen/Creatinine [Mass ratio]20.6 mg/mgNoOhioHealth Shelby HospitalComment on above:Performed By: #### CMP, TSH, LIPID #### [facility] [address] [place] [address] Dr. Hugo Miranda 58-36-0303ZWB Coag (PPP) [Relative time]0.96 {INR} NormalThe [facility] SystemComment on above:Performed By: #### PTT, PT #### [facility] [address] [place] [address] Dr. Hugo Brand GUIDELINESSEE BELOWNationwide Children's HospitalComment on above:Result Comment: DESIRED INR: 2.0 - 3.0 CONDITIONS NOT LISTED BELOW 2.5 - 3.5 FOR PROSTHETIC HEART VALVE REPLACEMENT 2.5 - 3.5 RECURRENT THROMBOSIS Performed By: #### PTT, PT #### [facility] [address] [place] [address] Dr. Hugo BarnettPT Coag (PPP) [Time]10.2 sNormal9.0-11.6The [facility] Comment on above:Performed By: #### PTT, PT #### [facility] [address] [place] [address] Dr. Hugo Cool 73-64-8392vIFR Coag (Bld) [Time]31.2 yRrpgdw44.3-36.2The [facility] SystemComment on above:Performed By: #### PTT, PT #### [facility] [address] [place] [address] Dr. Hugo Senior 97-97-4148XPT5.267 uIU/mLNormal0.516-4.130The [facility] SystemComment on above:Performed By: #### CMP, TSH, LIPID #### [facility] [address] [place] [address] Dr. Hugo Barnett Vital Signs Date TimeVital SignValuePerforming ThlwunywcQbnojofh28-68-6488 09:53-0500Body eiscar007.72 cmPHYSICIAN [facility]11-10-2025 09:53-0500Body mass index (BMI) [Ratio]44.5 kg/n8PSQPEOQSN [facility]11-10-2025 09:53-0500Body apzhayjzewu00.1 [degF]PHYSICIAN NO [facility]11-10-2025 09:53-0500Body cvqcik769.9 kgPHYSICIAN [facility]11-10-2025 09:53-0500 Diastolic blood mm[Hg]PHYSICIAN NO [facility]11-10-2025 09:53-0500Heart rate65 /minPHYSICIAN [facility]11-10-2025 09:53-0500Respiratory rate16 /minPHYSICIAN [facility]11-10-2025 09:53-7647UgB1% (BldA) [Mass fraction]99 %PHYSICIAN NO [facility]11-10-2025 09:53-0500Systolic blood tupnfnhx085 mm[Hg]PHYSICIAN [facility]05-24-2022 11:15-0400Body irjixr262.26 cmAlbert Link Other [facility] Other 05-24-2022 11:15-0400Body mass index (BMI) [Ratio] 37.06 kg/d8YjvjibvAlbert Link Other [facility] Other 05-24-2022 11:15-0400Body cifbio941.85 kgAlbert Link Other [facility] Other 05-24-2022 11:15-0400Diastolic blood erochmbg59 mm[Hg] Albert Link Other [facility] Other 05-24-2022 11:15-0400Respiratory rate18 /minGraciechery Link Other [facility] Other 05-24-2022 11:15-0054YfC6% (BldA) [Mass fraction]97 % Albert Link Other [facility] Other 05-24-2022 11:15-0400Systolic blood qlrkmoxr849 mm[Hg] Albert Link Other [facility] Other 05-05-2022 11:00-0400Body .26 cmMachery Link Other [facility] Other 05-05-2022 11:00-0400Body mass index (BMI) [Ratio] 37.31 kg/a5OghmuvxAlbert Link Other [facility] Other 05-05-2022 11:00-0400Body frzveyfjtxx70.4 [degF] Albert Link Other [facility] Other 05-05-2022 11:00-0400Body tbwsmu248.62 kgMachery Link Other [facility] Other 05-05-2022 11:00-0400Diastolic blood zqpsnhja61 mm[Hg] Albert Link Other [facility] Other 05-05-2022 11:00-0400Respiratory rate18 /minMachery Link Other [facility] Other 05-05-2022 11:00-1820TzQ3% (BldA) [Mass fraction]99 % Albert Link Other [facility] Other 05-05-2022 11:00-0400Systolic blood spcedfvm118 mm[Hg] Albert Link Other [facility] Other Encounters Encounter DateEncounter TypeCare ProviderFacilityStart: 03-21-2025 End: 20-34-2869zqhnifvgfsJQWTRKHFM NO [facility] ClydeStart: 03-21-2025 End: 98-41-3227Savhrud encounter procedurePatricia Kellie Silva ELECTRONICS REPAIR TECHNICIAN-[facility] Work Phone: Start: 02-04-2025 End: 41-65-5299Whmqqgcz ReferredTaylor Hardin Secure Medical Facilityan Tyler HospitalStart: 02-04-2025 End: 66-30-0934dysivovabaWUYHJPKDN NO [facility] Work Phone: Start: 09-29-2024 End: 12-67-8656himhugadizShkmtk Radatz JrFacility:[facility] Hospitaltart: 09-15-2024 End: 83-69-9910ldqoxjzobkGCCXXRZDC LYNN BREAULTFacility:FTMCStart: 09-15-2024 End: 34-54-0563Vdzfemq encounter procedureSTEPBRANDEN DANIEL [facility] Start: 06-11-2024 End: 77-59-0886Cvadswbar department patient visitMercy Health Perrysburg Hospitaltart: 11-04-2023 End: 51-24-8448kqpdqupdwdXRNV AICHHOLZNot AvailableStart: 04-21-2023 End: 50-38-4146jyulpotuueXVTH AICHHOLZNot AvailableStart: 10-08-2022 End: 63-43-7454kshcrxznnaOUR ENA HUTCHINSONHHOLAliciaFacility:P8Awidr: 10-02-2021 End: 38-34-0771xyqsqlxbqsFacpcvy Widmer Other [facility] Other Start: 29-14-4760Dxwmuc outpatient visit 15 minutes [facility] [place]Start: 09-13-2021 End: 48-81-7460nhmhlnhzzfRfawxjb Widmer Other Nort [facility] Other Start: 16-72-7292Kdgbld outpatient new 30 minutes [facility] [place] Procedures DateProcedureProcedure DetailPerforming ClinicianStart: 41-23-6103Rjieo Strep (POC)PHYSICIAN NO FAMILY Payers DatePayer CategoryPayerPolicy [id number] [id number] [id number] [id number] 2.840.1.682747.3.57[id number] 2.840.1.072637.3.57[id number] 2.0.1.248635.3.57[id number] 2.840.1.326628.3.57[id number] 2..840.1.059883.19 [id number] Social History DateTypeDetailFacilitySex Assigned At [facility]Nor[facility] Start: 01-97-3133YjnLhuliq (finding)[facility] HospitalToconnecticut hospice smoking status NHISUnknown if ever smokedFirelands Regional Medical Ctr Work Phone: Start: 91-92-7671Wvu Assigned At [facility] Hospitaltart: 36-84-2119Zqagwzu smoking status NHISNever smoked tobacco (finding)[facility] Evaluation note 10-02-2021 Note Date & CgvpQrhwCjwiidwa81-60-2212 Evaluation note* Encounter Date Diagnosis Assessment Notes Treatment Notes Treatment Clinical Notes September, Contusion of right knee, subsequ ent encounter (ICD-10 - S80.01XD) MRI reviewed with patient and dad. It shows all ligaments are intact and no meniscus injury. It didshow a medial femoral condyle contusion which is the source of patients pain and this was explainedto the patient. 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 She is walking without a brace and is doing well. She states after being on her feet for an extendedperiod of time she will get sore . She is to keep increasing her activity keeping her pain to <4/10. She can use ice and NSAID's for pain control. Instructed this could take another 4 weeks to improve and to f/u after that if worsening or not resolving. [facility] Other Evaluation note 09-13-2021 Note Date & NkrzYguzMzzituvt24-01-3795 Evaluation note* Encounter Date Diagnosis Assessment Notes Treatment Notes Treatment Clinical Notes September, Positive Jimbo te st of right knee, initial encounter (ICD-10 - S83.206A) Based on patient's history and physical exam findings today there is significant concern for a lateral meniscus tear. X-rays reviewed with the patient and there is no bony abnormalities identified. Because of the high concern for a lateral meniscus tear I will obtain an MRI and patient is not to doany lower body exercises or running until after the MRI is reviewed. She can come out of the knee immobilizer and begin doing rehab exercises designed specifically for meniscus injuries. She was given a handout for these exercises. She is to follow-up 2 to 3 days after the MRI to review the results. And patient voiced understanding agree with this plan. September,Knee effusion, right (ICD-10 - M25.461) September,Injury of right knee, initial encounter (ICD-10 - S89.91XA) [facility] Other Evaluation + Plan note Note Date & TypeNoteFacilityEvaluation + Plan note No data available for this section [facility] Evaluation note Note Date & TypeNoteFacilityEvaluation noteNo assessment information available [facility] Work Phone: Hospital Discharge instructions Note Date & TypeNoteFacilityHospital Discharge instructions No data available for this section [facility] Progress note Note Date & TypeNoteFacilityProgress note No data available for this section [facility] Reason for referral (narrative) Note Date & TypeNoteFacilityReason for referral (narrative)No reason for referral information available[facility] Work Phone: Summary Purpose Family History Relationship Condition Age at Onset Recorded Date/T beny father Asthma Unknown Advance Directives Advance Directive Response Recorded Date/ Time Advance Directives No March 9:32am Chief Complaint and Reason for Visit Chief Complaint Admit Date February 04, 2025 12:55pm Chief Complaint Admit Date February 04, 2025 12:55pm sore throat, cough March 21, 2025 9:32am Additional Source Comments REASON FOR VISIT (unrecogniz ed section and content) [facility] RIGHT KNEE INJURYMRI FOLLOW UP INFORMATION SOURCE (unrecogn ized section and content) DATE CREATED AUTHOR 10/18/2022 [facility] DATE CREATED AUTHOR AUTHOR'S ORGANIZ ATION 11/05/2023 [facility] DATE CREATED AUTHOR AUTHOR'S ORGANIZ ATION 06/14/2024 [facility] DATE CREATED AUTHOR AUTHOR'S ORGANIZ ATION 09/16/2024 [facility] DATE CREATED AUTHOR AUTHOR'S ORGANIZ ATION 09/17/2024 [facility] DATE CREATED AUTHOR AUTHOR'S ORGANIZ ATION 09/21/2024 [facility] DATE CREATED AUTHOR AUTHOR'S ORGANIZ ATION 02/11/2025 [facility] Care Teams (unrecognized sec tion and content) Team Status: Active Member Role/Relationship Status Dates PHYSICIAN NO FAMILY Primary Care Provider Active Team Status: Inactive Member Role/Relationship Status Dates PHYSICIAN NO FAMILY Primary Care Provider Active Start: February 04, 2025 End: February 04ryjuan luis Reeses - CHC , DO CHCAttending ProviderActive Start: February 04, 2025 End: February 04, 2025 Team Status: Inactive Member Role/Relationship Status Dates PHYSICIAN NO FAMILY Primary Care Provider Active Start: March 21, 2025 End: March 21, 2025Aylin Silva APRN TERMINATION CLERK-CAttending Provider ActiveStart: March 21, 2025 End: March 21, 2025 Team Status: Active Member Role Status Dates PHYSICIAN NO FAMILY Primary Care Provider Active Team Status: Inactive Member Role Status Dates PHYSICIAN NO FAMILY Primary Care Provider Active Start: February 04, 2025 End: February 04ryjuan luis Reeses - CHC , DO CHCAttending ProviderActive Start: February 04, 2025 End: February 04, 2025 Goals (unrecognized section and content) Goals may be documented in a n alternate section FOR RECORDS PERTAINING TO PATIENTS WHO ARE OR HAVE BEEN ENROLLED IN A CHEMICAL DEPENDENCY/SUBSTANCEABUSE PROGRAM, SOME INFORMATION MAY BE OMITTED. This clinical summary was aggregated from multiple sources. Caution should be exercised in using it in the provision of clinical care. This summary normalizes information from multiple sources, and as a consequence, information in this document may materially change the coding, format and clinical context of patient data. In addition, data may be omitted in some cases. CLINICAL DECISIONS SHOULD BE BASED ON THE PRIMARY CLINICAL RECORDS. [employer] [facility] provides no warranty or guarantee of the accuracy or completeness of information in this document.
[2025-03-22 23:35] LABS: Anion Gap 10.7; Blood Urea Nitrogen 10.0 mg/dL (7.0-18.0); Calcium 9.4 mg/dL (8.5-10.1); Carbon Dioxide 28.1 mmol/L (21.0-32.0); Chloride 105 mmol/L (98-107); Estimated GFR (African America >60 (>=60 mL/min/1.73m^2); Estimated GFR (Non-African Ame >60 (>=60 mL/min/1.73m^2); Glucose 97 mg/dL (74-106); Potassium 3.8 mmol/L (3.5-5.1); Sodium 140 mmol/L (136-145)
[2025-03-23] MEDS: AZITHROMYCIN 250 MG TABLET 500 MG PO (00:03)
[2025-03-23 00:12] VITALS: BP 160/76
== END 2025-03-23 00:12 | disposition home or self-care (01) ==
PROVIDERS: Emergency Provider Internal Medicine
DX: J20.9 Acute bronchitis, unspecified (principal)
CPT/HCPCS: 36415; 71046; 80048; 85025; 87070; 87804; 87811; 87880; 99284